=== PATIENT | female | born 1960 | race Caucasian/White ===

== ENCOUNTER 2017-08-30 21:15 | Emergency (ER) | payer BC ==
[2017-08-30] MEDS ORDERED: TETRACAINE 0.5% OPHTH DROPS 4 ML RIGHTEYE ONE (21:35)
[2017-08-30] MEDS ORDERED: PROPARACAINE 0.5% OPHTH DROPS 15 ML ONE (21:43)
[2017-08-30] MEDS ORDERED: POLYMYXIN B/TRIMETH OPHTH DROPS LEFTEYE STA (21:49)
--- NOTE | 2017-08-30 21:52 | ED Physician Documentation ---
PD HPI OPHTHO - Stated complaint Stated Complaint: LEFT EYE IRRITATION - Chief complaint Chief Complaint: Heent - History obtained from History obtained from: Patient, Family - History of Present Illness Timing - onset: Today Timing - details: Abrupt onset Location: Left Quality / character: Burning Associated symptoms: Redness, Swelling, Tearing, Discharge, FB sensation Contributing factors: Other (foreign body) Similar symptoms before: Has not had sx before Recently seen: Not recently seen - Additional information Additional information: Patient is a 57 year old female with no significant past medical history who is presenting to the emergency department for eye pain. patient states that she was shaking a tree to get the rest of the leaves down when something fell in her eye. Review of Systems Constitutional: denies: Fever, Chills Eyes: reports: Discharge, Irritation. denies: Decreased vision Ears: denies: Ear pain, Drainage/discharge Nose: reports: Reviewed and negative Throat: reports: Reviewed and negative Cardiac: reports: Reviewed and negative GI: reports: Reviewed and negative : reports: Reviewed and negative Skin: reports: Reviewed and negative Musculoskeletal: reports: Reviewed and negative Neurologic: reports: Reviewed and negative Psychiatric: reports: Reviewed and negative Immunocompromised: reports: Reviewed and negative PD PAST MEDICAL HISTORY - Past Medical History Past Medical History: No - Past Surgical History Past Surgical History: Yes - Present Medications Home Medications: Ambulatory Orders Medication Instructions Recorded Confirmed Ofloxacin 0.3% Ophth Drops 2 drops OPTH Q4H #1 btl 08/30/17 [Ocuflox 0.3% Ophth Drops] - Allergies Allergies/Adverse Reactions: Allergies Allergy/AdvReac Type Severity Reaction Status Date / Time Sulfa (Sulfonamide Allergy Hives Verified 08/30/17 21:47 Antibiotics) - Social History Does the pt smoke?: No Smoking Status: Never smoker Does the pt drink ETOH?: Yes ETOH Use: Wine Does the pt have substance abuse?: No - Immunizations Immunizations are current?: Yes Immunizations: TDAP >10years/unknown PD ED PE NORMAL - Vitals Vital signs reviewed: Yes - General General: Alert and oriented X 3, No acute distress - HEENT HEENT: Atraumatic, PERRL - Neck Neck: Supple, no meningeal sign, No JVD - Cardiac Cardiac: RRR, No murmur - Respiratory Respiratory: No respiratory distress - Abdomen Abdomen: Non distended - Derm Derm: Normal color, Warm and dry, No rash - Extremities Extremities: No deformity - Neuro Neuro: Alert and oriented X 3, No motor deficit, Normal speech - Psych Psych: Normal mood PD ED PE EXPANDED - Eyes Eyes: Left eye (small foreign body, in left eye with discharge. ) Results - Vitals Vitals: Vital Signs - 24 hr 08/30/17 21:31 Temperature 36.4 C L Heart Rate 97 Respiratory 22 Rate Blood Pressure 145/84 H O2 Saturation 98 Oxygen O2 Source Room air PD MEDICAL DECISION MAKING - ED course Complexity details: reviewed old records, reviewed results, re-evaluated patient , considered differential, d/w patient ED course: Patient was seen and examined at bedside. Patient's eye was viewed with fluorosceine, Foreign body was removed. Patient was started on antibiotics. Prescriptions were written. patient was stable for discharge with outpatient follow up. Departure - Departure Disposition: 01 Home, Self Care Clinical Impression: Foreign body in eye Condition: Good Instructions: ED Foreign Body Cornea Follow-Up: primary,care provider [Other] - As Needed Prescriptions: Ofloxacin 0.3% Ophth Drops [Ocuflox 0.3% Ophth Drops] 2 drops OPTH Q4H #1 btl Comments: Your symptoms today are secondary to the foreign body in your eye. you should take the eye drops every 4 hours over the next week. You should also wash your eye out this evening. You should follow up with your eye doctor if your symptoms persist. You may return to the emergency department at any time for new, worsening or uncontrollable symptoms.
[2017-08-30] MEDS ORDERED: POLYMYXIN B/TRIMETH OPHTH DROPS ONE (22:11)
[2017-08-30 22:16] VITALS: BP 133/88
== END 2017-08-30 22:15 | disposition home or self-care (01) ==
LOC: ED 21:15
DX: T15.02XA Foreign body in cornea, left eye, initial encounter (principal); X58.XXXA Exposure to other specified factors, initial encounter
CPT/HCPCS: 65205; 99283; A9270; J3490